=== PATIENT | male | born 1985 | race African-American/Black ===

== ENCOUNTER 2024-05-09 14:30 | Emergency (ER) | payer OTHER ==
[~2024-05-09] VITALS: Ht 180.3 cm; Wt 79.4 kg
[2024-05-09 14:42] VITALS: BP 125/76; TEMP 97.9; O2SAT 99
== END 2024-05-09 16:49 | disposition home or self-care (01) ==
LOC: ER 14:34
DX: M79.89 Other specified soft tissue disorders (principal); M79.641 Pain in right hand
CPT/HCPCS: 73130-TC